=== PATIENT | female | born 1980 | race Caucasian/White ===

== ENCOUNTER 2019-11-03 13:53 | Emergency (ER) | payer BC ==
[~2019-11-03] VITALS: Ht 172.7 cm; Wt 99.1 kg
[2019-11-03 14:17] VITALS: BP 156/99
== END 2019-11-03 14:48 | disposition home or self-care (01) ==
LOC: ER 13:54 → EEVIPCON 13:54 → ER 14:48
DX: J02.9 Acute pharyngitis, unspecified (principal); R11.0 Nausea; Z20.828 Contact with and (suspected) exposure to other viral communicable diseases
CPT/HCPCS: 36415; 99281; 99283

== ENCOUNTER 2020-02-26 18:02 | Emergency (ER) | payer BC ==
[~2020-02-26] VITALS: Ht 172.7 cm; Wt 98.2 kg
--- NOTE | 2020-02-26 18:38 | NUR ---
dr irving and jacque baugh at bedside in [facility] tent. reports he does not feel need to test her for covid at this time as she is a 2nd exposure through her and that he is negative from his test a few days ago. He will dc her on abx.
[2020-02-26] MEDS ORDERED: dexamethasone 4mg tablet PO ONE (18:40)
[2020-02-26] MEDS ORDERED: DEC4T PO (18:45)
[2020-02-26 18:57] VITALS: BP 163/96
== END 2020-02-26 18:59 | disposition home or self-care (01) ==
LOC: ER 18:03
DX: B34.9 Viral infection, unspecified (principal); Z20.828 Contact with and (suspected) exposure to other viral communicable diseases
CPT/HCPCS: 99283

== ENCOUNTER 2020-04-01 08:51 | Outpatient (CLI) | payer BC | END 2020-04-01 23:59 | disposition home or self-care (01) | LOC: RAD 08:51 | PROVIDERS: ATTEND Family Medicine | DX: M51.36 Other intervertebral disc degeneration, lumbar region (principal); M48.061 Spinal stenosis, lumbar region without neurogenic claudication | CPT/HCPCS: 72148; 72195 ==

== ENCOUNTER 2020-06-10 08:12 | Outpatient (CLI) | payer BC ==
[2020-06-10 09:10] LABS: BASOPHILS % (AUTO) 0.3 % (0-1); EOSINOPHILS % (AUTO) 0.5 % (0-6); HEMATOCRIT 41.4 % (35.0-45.0); HEMOGLOBIN 13.8 g/dl (12.0-16.0); LYMPHOCYTES # (AUTO) 1.4 X10'3 (1.1-4.8); MEAN CORPUSCULAR HEMOGLOBIN 30.4 PG (27.0-31.0); MEAN CORPUSCULAR HGB CONC 33.4 g/dL (33.0-36.5); MEAN CORPUSCULAR VOLUME 90.9 FL (78-98); MEAN PLATELET VOLUME 7.1 FL (7.4-10.4); MONOCYTES # (AUTO) 0.4 X10'3 (0-0.9); MONOCYTES % (AUTO) 5.1 % (2-12); NEUTROPHILS # (AUTO) 6.5 X10'3 (1.8-7.7); NEUTROPHILS % (AUTO) 77.1 % (42-75); PLATELET COUNT 309 X10'3 (140-440); RED BLOOD COUNT 4.56 X10'6 (4.20-5.60); RED CELL DISTRIBUTION WIDTH 13.5 % (11.5-14.5); WHITE BLOOD COUNT 8.4 X10'3 (4.5-11.0)
[2020-06-10 09:24] LABS: CLARITY,URINE CLEAR (Clear); COLOR,URINE YELLOW (Yellow); GLUCOSE, URINE NEGATIVE (Neg); KETONES,URINE NEGATIVE (Neg); LEUKOCYTE ESTERASE ,URINE NEGATIVE (Neg); NITRITES, URINE NEGATIVE (Neg); OCCULT BLOOD,URINE NEGATIVE (Neg); PH,URINE 6.5 (4.8-8.0); PROTEIN,URINE NEGATIVE (Neg); UROBILINOGEN,URINE 0.2 E.U/dL (0.2-1.0)
[2020-06-10 09:29] LABS: UA COLLECTION TYPE CLN CATCH MIDSTREAM
[2020-06-10 10:52] LABS: ALANINE AMINOTRANSFERASE 21 U/L (12-78); ALBUMIN 3.7 G/DL (3.4-5.0); ALBUMIN/GLOBULIN RATIO 0.9 (1.1-1.5); ALKALINE PHOSPHATASE 67 IU/L (46-116); ANION GAP 10 (8-16); ASPARTATE AMINO TRANSFERASE 11 U/L (10-37); BILIRUBIN,TOTAL 0.4 MG/DL (0.1-1.0); BLOOD UREA NITROGEN 11 MG/DL (7-18); BUN/CREATININE RATIO 13.1 (6.6-38.0); CALCIUM 9.4 MG/DL (8.5-10.1); CHLORIDE 104 MMOL/L (99-107); CHOL/HDL RATIO 2.4 (0.00-4.99); CHOLESTEROL 201 MG/DL (0-200); CREATININE 0.84 MG/DL (0.40-0.90); GLUCOSE 112 MG/DL (70-104); HDL CHOLESTEROL 83 MG/DL (35-60); LDL CHOLESTEROL 100 MG/DL (50-100); POTASSIUM 3.9 MMOL/L (3.5-5.1); SODIUM 140 MMOL/L (135-145); TOTAL CARBON DIOXIDE 26.3 MMOL/L (24-32); TOTAL PROTEIN 7.7 G/DL (6.4-8.2); TRIGLYCERIDES 77 MG/DL (20-135); eGFR 75 ML/MIN
== END 2020-06-10 23:59 | disposition home or self-care (01) ==
LOC: LAB 08:12
PROVIDERS: ATTEND Family Medicine
DX: F32.9 Major depressive disorder, single episode, unspecified (principal); R23.2 Flushing
CPT/HCPCS: 36415; 80053; 80061; 81003; 84439; 84443; 85025